=== PATIENT | female | born 1945 | race Caucasian/White ===

== ENCOUNTER 2017-11-29 13:36 | Inpatient (IN) | payer OTHER ==
[~2017-11-29] VITALS: Ht 160 cm; Wt 137.6 kg
[~2017-11-29 13:36] MED LIST: ASPIRIN325 MG PO; Advair 250/50 Diskus IH; CARDIZEM120 MG PO; DICLOFENAC SODI75 MG PO; DIGOXIN250 MCG PO; DILTIAZEM HCL360 MG PO; DuoNeb IH; EXFORGE 10/31 TABLET PO; EXFORGE 5/321 TABLET PO; Humibid LA,Mucinex PO; LIPITOR10 MG PO; LOPRESSOR50 MG PO; Lanoxin,Digitek PO; Levaquin PO; PROTONIX40 MG PO; Protonix PO; VITAMIN D31000 UNI2 PO; VITAMIN D31000 UNIT PO; Xarelto PO; [UNRECOGNIZED DRUG - OTHER]; [UNRECOGNIZED DRUG - OTHER] TP
[2017-11-29 14:39] LABS: HEMATOCRIT 45.6 % (36.0-46.0); HEMOGLOBIN 14.6 G/DL (11.9-15.5); MCH 28.9 PG (29.0-34.0); MCV 90.3 FL (83-99); PLATELET COUNT 170 K/uL (156-360); RED BLOOD COUNT 5.05 M/uL (3.80-5.20); WHITE BLOOD COUNT 8.7 K/uL (4.1-10.2)
[2017-11-29 14:49] LABS: CHLORIDE 107 mEq/L (99-109); POTASSIUM 5.3 mEq/L (3.7-5.4); SODIUM 144 mEq/L (136-147)
[2017-11-29 14:51] LABS: GLUCOSE 107 mg/dL (70-99)
[2017-11-29 14:55] LABS: CREATININE 0.8 mg/dL (0.6-1.3); GFR ESTIMATE (CALCULATED) > 59 mL/min/
[2017-11-29 14:56] LABS: UREA NITROGEN (BUN) 22 mg/dL (9-23)
[2017-11-29 15:00] LABS: TROP-I INTERPRETATION NEGATIVE; TROPONIN-I < 0.01 ng/mL (0.0-0.30)
[2017-11-29 20:53] VITALS: BP 138/81
[2017-11-29 21:28] LABS: TROP-I INTERPRETATION NEGATIVE; TROPONIN-I < 0.01 ng/mL (0.0-0.30)
[2017-11-30] VITALS (7 sets, daily range): BP systolic 105–140; BP diastolic 57–96
[2017-11-30 06:12] LABS: HEMATOCRIT 48.1 % (36.0-46.0); HEMOGLOBIN 14.9 G/DL (11.9-15.5); MCH 28.2 PG (29.0-34.0); MCV 90.9 FL (83-99); PLATELET COUNT 173 K/uL (156-360); RBC DIS.WIDTH-SD 56.2 % (39-53); RED BLOOD COUNT 5.29 M/uL (3.80-5.20); WHITE BLOOD COUNT 8.2 K/uL (4.1-10.2)
[2017-11-30 06:32] LABS: CHLORIDE 103 MEQ/L (99-109); CREATININE 0.8 MG/DL (0.6-1.3); GFR ESTIMATE (CALCULATED) > 59 mL/min/; GLUCOSE 82 mg/dL (70-99); POTASSIUM 4.5 MEQ/L (3.7-5.4); SODIUM 143 MEQ/L (136-147); UREA NITROGEN (BUN) 21 mg/dL (9-23)
[2017-11-30 18:40] LABS: COMMENTS - BLOOD GASES A+C+; FI02 21 %; SITE LR; TOTAL RESP RATE 24 resp/min
[2017-11-30 18:41] LABS: BASE EXCESS 8.9 mEq/L (-3 to +3); METHEMOGLOBIN 0.8 % (0-1.5); O2 SATURATION (CALCULATED) 82 % (95-99); PCO2 64 mm Hg (35-45); PO2 44 mm Hg (80-100); pH 7.37 (7.35-7.45)
[2017-12-01 05:30] LABS: BASOPHIL (%) 0.4 % (0-1); EOSINOPHIL (%) 0 % (0-5); HEMATOCRIT 49.4 % (36.0-46.0); HEMOGLOBIN 14.9 G/DL (11.9-15.5); IMMATURE GRANULOCYTE (%) 0.3 % (0.0-0.7); LYMPHOCYTE (%) 6.2 % (15-42); LYMPHOCYTE COUNT 0.5 K/uL (1.0-2.8); MCH 27.3 PG (29.0-34.0); MCHC 30.2 G/DL (30.0-36.0); MCV 90.5 FL (83-99); MONOCYTE (%) 4.8 % (3-12); MONOCYTE COUNT 0.4 K/uL (0-0.8); NEUTROPHIL (%) 88.3 % (45-76); PLATELET COUNT 192 K/uL (156-360); RBC DIS.WIDTH-CV 16.5 % (11.8-14.6); RBC DIS.WIDTH-SD 54.4 % (39-53); RED BLOOD COUNT 5.46 M/uL (3.80-5.20)
[2017-12-01 06:00] LABS: CHLORIDE 99 MEQ/L (99-109); CREATININE 0.9 MG/DL (0.6-1.3); GFR ESTIMATE (CALCULATED) > 59 mL/min/; POTASSIUM 4.8 MEQ/L (3.7-5.4); SODIUM 141 MEQ/L (136-147); UREA NITROGEN (BUN) 21 mg/dL (9-23)
[2017-12-01 06:01] LABS: GLUCOSE 131 mg/dL (70-99)
[2017-12-01 08:01] VITALS: BP 191/107
[2017-12-01 12:28] VITALS: BP 109/55
[2017-12-01 16:09] VITALS: BP 130/78
[2017-12-01 20:00] VITALS: BP 133/78
[2017-12-02] VITALS: BP 126/67
[2017-12-02 04:00] VITALS: BP 127/71
[2017-12-02 07:20] VITALS: BP 156/79
[2017-12-02] MEDS ORDERED: SPIRIVA RESPIMAT4 GM IH (11:53)
[2017-12-02] MEDS ORDERED: FAMOTIDINE20 MG PO (11:55)
[2017-12-02] MEDS ORDERED: DULERA 100 MCG/13 GM IH (11:57)
[2017-12-02] MEDS ORDERED: K-DUR20 MEQ PO (11:57)
[2017-12-02] MEDS ORDERED: LASIX40 MG PO (11:58)
[2017-12-02] MEDS ORDERED: PREDNISONE10 MG PO (12:00)
== END 2017-12-02 15:53 | disposition home or self-care (01) | DRG 190 ==
LOC: EME 13:36 → 5SOUTH 17:53 → EDOF 17:53 → ENRESERV 17:56 → 5SOUTH 19:45
PROVIDERS: Emergency Medicine; Hospitalist; Internal Medicine Pulmonary Disease; Physician Assistant
DX: J44.9 Chronic obstructive pulmonary disease, unspecified (principal); J96.01 Acute respiratory failure with hypoxia; I08.1 Rheumatic disorders of both mitral and tricuspid valves; I27.20 Pulmonary hypertension, unspecified; I48.2 Chronic atrial fibrillation; G47.33 Obstructive sleep apnea (adult) (pediatric); I10 Essential (primary) hypertension; G89.4 Chronic pain syndrome; E78.5 Hyperlipidemia, unspecified; K21.9 Gastro-esophageal reflux disease without esophagitis; Z66 Do not resuscitate; E66.01 Morbid (severe) obesity due to excess calories; Z68.43 Body mass index [BMI] 50.0-59.9, adult; Z79.82 Long term (current) use of aspirin; Z87.891 Personal history of nicotine dependence
CPT/HCPCS: 36600; 71046; 71275; 80048; 82803; 83735; 83880; 84484; 85025; 85027; 87040; 93005; 93306; 94640; 94640 76; 94760; 94799; 99202; 99281; 99285; J0295; J0456; J0696; J1644; J1940; J2060; J7050; J7512